=== PATIENT | female | born 1955 | race Caucasian/White ===

== ENCOUNTER 2019-09-21 08:53 | Emergency (ER) | payer BC, OTHER ==
[~2019-09-21] VITALS: Ht 167.7 cm; Wt 61.3 kg
--- NOTE | 2019-09-21 09:28 | Diagnostic Imaging Report ---
Indication: Chest pain COMPARISON: No previous study is available for comparison at this time. FINDINGS: Heart size and pulmonary vasculature are within normal limits, and the lungs are clear, bilaterally. IMPRESSION: Unremarkable chest. Dictated by: Dictated on workstation # [id number]
[2019-09-21] MEDS ORDERED: LORazepam INJ 2 MG/ML (ATIVAN) VIAL IVP ONE (09:30)
[2019-09-21 09:36] LABS: BASOPHILS % (AUTO) 1 % (0-10); EOSINOPHILS # (AUTO) 0.1 10^3/uL (0.0-0.3); EOSINOPHILS % (AUTO) 1 % (0-10); HEMATOCRIT 44 % (35-52); HEMOGLOBIN 14.9 G/DL (11.5-16.0); LYMPHOCYTES # (AUTO) 1.6 X 10^3 (1.0-4.0); LYMPHOCYTES % (AUTO) 21 % (12-44); MEAN CORPUSCULAR HEMOGLOBIN 30 PG (25-34); MEAN CORPUSCULAR HGB CONC 34 G/DL (32-36); MEAN CORPUSCULAR VOLUME 88 FL (80-99); MEAN PLATELET VOLUME 11.8 FL (7.4-10.4); MONOCYTES # (AUTO) 0.5 X 10^3 (0.0-1.0); MONOCYTES % (AUTO) 6 % (0-12); NEUTROPHILS # (AUTO) 5.5 X 10^3 (1.8-7.8); NEUTROPHILS % (AUTO) 71 % (42-75); PLATELET COUNT 201 10^3/uL (130-400); RED CELL DISTRIBUTION WIDTH 12.9 % (10.0-14.5); WHITE BLOOD COUNT 7.7 10^3/uL (4.3-11.0)
[2019-09-21 09:37] LABS: BASOPHILS # (AUTO) 0.1 10^3/uL (0.0-0.1)
--- NOTE | 2019-09-21 09:43 | ED General ---
General Chief Complaint: Chest Pain Stated Complaint: CHEST PAIN Nursing Triage Note: Patient presents to the ED with c/o chest heaviness for the past week. She reports that she has been under a great deal of stress caring for her elderly mother and has hardly slept in the past week. She states that if she applies pressure to her chest that somewhat alleviates the heavy pressure in her chest. Nursing Sepsis Screen: No Definite Risk Source of Information: Patient History of Present Illness Date Seen by Provider: Sep 21, 2019 Time Seen by Provider: 09:10 Initial Comments Patient is a 64-year-old female with history of hypertension and dyslipidemia who presents with intermittent substernal chest heaviness for the past several weeks. Symptoms are rated mild and more noticeable at rest and while lying down. They're not associated with nausea shortness of breath or sweats. However, over the past 3 days the patient has had some nausea and sweats but denies vomiting and abdominal pain. Denies leg pain or swelling. Chest tightness is not exertional. No previous cardiac workup. Patient took 500 mg aspirin prior to ED arrival. Patient reports increased stress over the past 2 weeks caring for tania syed family member. Timing/Duration: Changing Over Time, Other (several weeks) Severity: Mild Modifying Factors: improves with Rest, improves with Other Associated Systoms: Chest Pain Allergies and Home Medications Allergies Coded Allergies: No Known Drug Allergies (Unverified , 09/21/19) Patient Home Medication List Home Medication List Reviewed: Yes Review of Systems Review of Systems Constitutional: see HPI EENTM: see HPI Respiratory: see HPI Cardiovascular: see HPI Gastrointestinal: see HPI Genitourinary: see HPI Musculoskeletal: see HPI Skin: see HPI Psychiatric/Neurological: Anxiety Hematologic/Lymphatic: No Symptoms Reported Immunological/Allergic: no symptoms reported All Other Systems Reviewed Negative Unless Noted: Yes Past Cvtjsxa-Jinlra-Ybrhmi Hx Past Med/Social Hx: Reviewed Nursing Past Med/Soc Hx Patient Social History Alcohol Use: Denies Use Recreational Drug Use: No Smoking Status: Never a Smoker 2nd Hand Smoke Exposure: No Recent Foreign Travel: No Contact w/Someone Who Travel: No Recent Infectious Disease Expo: No Recent Hopitalizations: No Physical Abuse: No Sexual Abuse: No Mistreated: No Fear: No Seasonal Allergies Seasonal Allergies: No Past Medical History Surgeries: Yes ([place] Biopsy) Breast Respiratory: No Cardiac: Yes High Cholesterol, Hypertension Neurological: No Genitourinary: No Gastrointestinal: No Musculoskeletal: No Endocrine: No HEENT: No Cancer: No Psychosocial: No Integumentary: No Blood Disorders: No Physical Exam Vital Signs Vital Signs - First Documented 09/21/19 09/21/19 08:55 09:02 Temp 36.8 Pulse 70 Resp 17 B/P (MAP) 149/76 (100) Pulse Ox 96 O2 Delivery Room Air Capillary Refill : Less Than 3 Seconds Height, Weight, BMI Height: '" Weight: lbs. oz. kg; 21.00 BMI Method: General Appearance: No Apparent Distress, WD/WN Eyes: Bilateral Eye Normal Inspection, Bilateral Eye PERRL, Bilateral Eye EOMI Neck: Full Range of Motion, Normal Inspection, Supple Respiratory: Chest Non Tender, Lungs Clear Cardiovascular: Regular Rate, Rhythm Gastrointestinal: Normal Bowel Sounds Back: Normal Inspection Extremity: Normal Capillary Refill, Normal Inspection Neurologic/Psychiatric: Alert, Oriented x3 Skin: Normal Color, Warm/Dry Focused Exam Sepsis Stage: Ruled Out Progress/Results/Core Measures Suspected Sepsis Recent Fever Within 48 Hours: No Infection Criteria Present: None New/Unexplained Altered Menta: No Sepsis Screen: No Definite Risk SIRS Temperature: Pulse: 70 Respiratory Rate: 17 Laboratory Tests 09/21/19 09:02: White Blood Count 7.7 Blood Pressure 149 /76 Mean: 100 Laboratory Tests 09/21/19 09:02: Creatinine 0.66, Platelet Count 201, Total Bilirubin 0.9 Results/Orders Lab Results Laboratory Tests Test 09/21/19 09:02 Range/Units White Blood Count 7.7 4.3-11.0 10^3/uL Red Blood Count 4.98 4.35-5.85 10^6/uL Hemoglobin 14.9 11.5-16.0 G/DL Hematocrit 44 35-52 % Mean Corpuscular Volume 88 80-99 FL Mean Corpuscular Hemoglobin 30 25-34 PG Mean Corpuscular Hemoglobin Concent 34 32-36 G/DL Red Cell Distribution Width 12.9 10.0-14.5 % Platelet Count 201 130-400 10^3/uL Mean Platelet Volume 11.8 H 7.4-10.4 FL Neutrophils (%) (Auto) 71 42-75 % Lymphocytes (%) (Auto) 21 12-44 % Monocytes (%) (Auto) 6 0-12 % Eosinophils (%) (Auto) 1 0-10 % Basophils (%) (Auto) 1 0-10 % Neutrophils # (Auto) 5.5 1.8-7.8 X 10^3 Lymphocytes # (Auto) 1.6 1.0-4.0 X 10^3 Monocytes # (Auto) 0.5 0.0-1.0 X 10^3 Eosinophils # (Auto) 0.1 0.0-0.3 10^3/uL Basophils # (Auto) 0.1 0.0-0.1 10^3/uL Sodium Level 138 135-145 MMOL/L Potassium Level 3.9 3.6-5.0 MMOL/L Chloride Level 101 98-107 MMOL/L Carbon Dioxide Level 23 21-32 MMOL/L Anion Gap 14 5-14 MMOL/L Blood Urea Nitrogen 9 7-18 MG/DL Creatinine 0.66 0.60-1.30 MG/DL Estimat Glomerular Filtration Rate > 60 BUN/Creatinine Ratio 14 Glucose Level 174 H 70-105 MG/DL Calcium Level 9.8 8.5-10.1 MG/DL Corrected Calcium 8.5-10.1 MG/DL Total Bilirubin 0.9 0.1-1.0 MG/DL Aspartate Amino Transf (AST/SGOT) 17 5-34 U/L Alanine Aminotransferase (ALT/SGPT) 19 0-55 U/L Alkaline Phosphatase 80 40-136 U/L Troponin I < 0.30 <0.30 NG/ML Total Protein 6.9 6.4-8.2 GM/DL Albumin 4.6 H 3.2-4.5 GM/DL Lipase 34 8-78 U/L Smear Scan My Orders Orders - IMMANUEL COLLIER DO Cbc With Automated Diff (09/21/19 09:14) Comprehensive Metabolic Panel (09/21/19 09:14) Chest 1 View Ap/Pa Only (09/21/19 09:14) Troponin I Fs (09/21/19 09:14) Lipase (09/21/19 09:14) Ekg Tracing (09/21/19 09:21) Lorazepam Injection (Ativan Injection) (09/21/19 09:30) Medications Given in ED Current Medications Medications Dose Ordered Sig/Елена Route Start Time Stop Time Status Last Admin Dose Admin Lorazepam 0.5 mg ONCE ONCE IVP 09/21/19 09:30 09/21/19 09:31 DC 09/21/19 09:36 0.5 MG Vital Signs/I&O 09/21/19 09/21/19 08:55 09:02 Temp 36.8 Pulse 70 Resp 17 B/P (MAP) 149/76 (100) Pulse Ox 96 O2 Delivery Room Air Room Air Capillary Refill : Less Than 3 Seconds Blood Pressure Mean: 100 Departure Communication (Admissions) EKG: Normal sinus rhythm, rate 70, no acute ST-T wave changes, QTC normal. Chest x-ray: No acute cardiopulmonary disease. Patient resting comfortably and is asymptomatic after treatment. Suspect symptoms are anxiety related. However, underlying cardiac disease can not be ruled out due to multiple risk factors. I discussed with patient a range of options for further testing. Hospital admission for inpatient stress testing, as well as, outpatient stress test to be arranged by her primary care provider. Patient requests outpatient stress testing to be set up by her PCP. In the meantime, we'll have the patient continue daily aspirin and prescribed Ativan as needed for sleep at night. Return precautions reviewed. Patient verbalizes understanding agreement discharge instructions prior to departure Impression Primary Impression: Chest pain Disposition: HOME, SELF-CARE Condition: Stable Departure-Patient Inst. Decision time for Depature: 10:14 Patient Instructions: Chest Pain (DC) Add. Discharge Instructions: Please continue daily low-dose aspirin and take Ativan as needed for sleep at night. Contact her PCP to arrange for outpatient cardiac stress testing. In the meantime if you develop new or worsening symptoms, return to the ED. All discharge instructions reviewed with patient and/or family. Voiced understanding. Scripts Lorazepam (Ativan) 1 Mg Tablet 1 MG PO qhs PRN for ANXIETY for 7 Days, #10 TAB Prov: IMMANUEL COLLIER DO 09/21/19 IMMANUEL COLLIER DO Sep 21, 2019 09:43
[2019-09-21 09:46] LABS: ALANINE AMINOTRANSFERASE 19 U/L (0-55); ALKALINE PHOSPHATASE 80 U/L (40-136); BILIRUBIN,TOTAL 0.9 MG/DL (0.1-1.0); BUN/CREATININE RATIO 14; CALCIUM 9.8 MG/DL (8.5-10.1); CARBON DIOXIDE 23 MMOL/L (21-32); CHLORIDE 101 MMOL/L (98-107); CREATININE SERUM 0.66 MG/DL (0.60-1.30); GFR ESTIMATED > 60; GLUCOSE 174 MG/DL (70-105); POTASSIUM 3.9 MMOL/L (3.6-5.0); SODIUM 138 MMOL/L (135-145); TOTAL PROTEIN 6.9 GM/DL (6.4-8.2)
[2019-09-21 09:47] LABS: ALBUMIN 4.6 GM/DL (3.2-4.5); LIPASE 34 U/L (8-78)
[2019-09-21] MEDS ORDERED: LORA-405 PO (10:16)
[2019-09-21 10:32] VITALS: BP 120/61
== END 2019-09-21 10:32 | disposition home or self-care (01) ==
LOC: EDUNIT# 08:53 → ER FS 08:55
DX: R07.89 Other chest pain (principal); I10 Essential (primary) hypertension; Z79.82 Long term (current) use of aspirin
CPT/HCPCS: 36415; 71045; 80053; 83690; 84484; 85025